=== PATIENT | male | born 1945 | race Hispanic/Latino ===

== ENCOUNTER → 2017-06-20 | Outpatient (CLI) | payer MEDICARE, BC ==
[~2017-06-20] MED LIST: IOPAMIDOL 370 MG/ML 200 ML INFUS..BTL INJ ONE; SODIUM CHLORIDE 0.9% 50ML 50 ML ONE
[2017-06-20 18:13] LABS: BLOOD UREA NITROGEN 14 mg/dL (7-26); BUN/CREATININE RATIO 18 (6-25); CREATININE, SERUM 0.76 mg/dL (0.72-1.25); EST GLOMERULAR FILTRATION RATE > 60 ML/MIN (60-)
--- NOTE | 2017-06-20 20:39 | Diagnostic Imaging Report ---
EXAM: CT Abdomen and Pelvis WITHOUT and WITH contrast INDICATION: Malignant neoplasm of the left kidney. History of surgery. Right flank pain x2-3 months. COMPARISON: CT abdomen and pelvis 08/09/2011 TECHNIQUE: Abdomen and pelvis were scanned utilizing a multidetector helical scanner from the lung base to the pubic symphysis before and after administration of IV contrast. Coronal and sagittal reformations were obtained. Renal mass protocol was performed. Scan was performed pre-, arterial, nephrographic, and 4 minute delayed phase. IV CONTRAST: 100 mL of Isovue 370 ORAL CONTRAST: Water COMPLICATIONS: None RADIATION DOSE: Total DLP: 2015.85 mGy*cm Estimated effective dose: (DLP x 0.015 x size factor) mSv CTDIvol has been reviewed. It is below the limits set by the Radiation Protocol Committee (RPC). FINDINGS: LINES and TUBES: None. LOWER THORAX: Bibasilar atelectasis and mild scarring. Severe trivessel coronary artery calcifications. HEPATOBILIARY: No focal hepatic lesions. No biliary ductal dilation. GALLBLADDER: There are cholecystectomy clips. SPLEEN: No splenomegaly. PANCREAS: There is fatty infiltration of the pancreas. ADRENALS: No adrenal nodules KIDNEYS/URETERS: Kidneys enhance symmetrically. No hydronephrosis. 1.3 cm simple cyst in the lateral interpolar/lower pole. 0.8 cm too small to characterize hypodensity in the medial interpolar region of the right kidney. No stones. Postoperative changes of partial left nephrectomy along the inferior pole. GI TRACT: Right hemicolectomy with ileal transverse colon anastomosis. No abnormal distention, wall thickening, or evidence of bowel obstruction. There are diverticula within the colon without evidence of diverticulitis. PELVIC ORGANS/BLADDER: Prostate measures 5.2 cm in transverse dimension with TURP defect. Bladder is normal. LYMPH NODES: No lymphadenopathy. VESSELS: Unremarkable. PERITONEUM / RETROPERITONEUM: No free air or fluid. BONES: There are degenerative changes in the lumbar spine. Multiple large posterior disc osteophytes. Right L5-S1 partial hemilaminectomy. SOFT TISSUES: Unremarkable. IMPRESSION: 1. Stable postoperative changes of partial left nephrectomy along the inferior pole. 2. Simple right renal cyst. Several other too small to characterize hypodensities bilaterally. Signed by: Dr. Chino Yee M.D. on 06/20/2017 8:35 PM
== END ==
LOC: CT 16:50
PROVIDERS: ATTEND Urology
DX: C64.9 Malignant neoplasm of unspecified kidney, except renal pelvis (principal)
CPT/HCPCS: 36415; 74178; 82565; 84520; Q9967

== ENCOUNTER → 2018-04-16 | Outpatient (CLI) | payer MEDICARE, BC ==
--- NOTE | 2018-04-16 17:25 | Diagnostic Imaging Report ---
Frontal and lateral views of the chest. HISTORY: Malignant neoplasm of left kidney COMPARISON: Images from a chest radiograph performed December 06, 2016. Images to the lung bases from a CT of the abdomen June 20, 2017. DISCUSSION: Lungs: Persistent indentation of the right hemidiaphragm. Mild right greater than left bibasilar atelectasis versus scarring. No consolidative pneumonia or pulmonary alveolar edema. Pleura: No pleural effusion or pneumothorax. Heart and mediastinum: The cardiomediastinal silhouette appears unremarkable. Bones: No acute osseous lesion. IMPRESSION: 1. Eventration of the right hemidiaphragm with mild right greater than left atelectasis versus scarring. 2. No significant interval change. Signed by: Dr. Abel Venegas D.O., M.M.M. on 04/16/2018 5:22 PM
--- NOTE | 2018-04-16 18:22 | Diagnostic Imaging Report ---
RENAL ULTRASOUND TECHNIQUE: Ultrasound evaluation of the KIDNEYS. Color Doppler evaluation was utilized to supplement the evaluation. HISTORY: Status post left nephrectomy, history of malignant neoplasm COMPARISON: CT of the abdomen June 20, 2017. DISCUSSION: RIGHT KIDNEY: The right kidney measures 12 cm in length. The cortex measures 2.1 cm in thickness. Parenchyma is within normal limits. No hydronephrosis or solid mass lesions. LEFT KIDNEY: The left kidney measures 11 cm in length. The cortex measures 1.7 cm in thickness. Parenchyma is within normal limits. No hydronephrosis or solid mass lesions. Cortical irregularity near the inferior pole, compatible with prior partial nephrectomy. BLADDER: Bilateral ureteral jets are visible during the exam. Other: The prostate is within normal size limits. IMPRESSION: 1. Postsurgical changes of the left kidney. 2. No sonographic abnormality. Signed by: Dr. Abel Venegas D.O., M.M.M. on 04/16/2018 6:19 PM
== END ==
LOC: US 16:49
PROVIDERS: ATTEND Urology
DX: C64.2 Malignant neoplasm of left kidney, except renal pelvis (principal)
CPT/HCPCS: 71046; 76770

== ENCOUNTER → 2018-11-01 | Outpatient (CLI) | payer MEDICARE, BC ==
--- NOTE | 2018-11-01 17:25 | Diagnostic Imaging Report ---
EXAMINATION: CHEST 2 VIEWS INDICATION: Malignancy neoplasm of kidney ^[id number] ^[id number] COMPARISON: 04/16/2018 FINDINGS: TUBES and LINES: None. LUNGS: Unchanged nonspecific elevation of the right hemidiaphragm with mild scarring/atelectasis in the lung bases. There is no evidence of pneumonia or pulmonary edema. PLEURA: No pleural effusion or pneumothorax. HEART AND MEDIASTINUM: The cardiomediastinal silhouette is unremarkable. BONES AND SOFT TISSUES: No acute osseous lesion. Soft tissues are unremarkable. UPPER ABDOMEN: No free air under the diaphragm. IMPRESSION: Unchanged nonspecific elevation of the right hemidiaphragm with mild scarring/atelectasis in the lung bases. Signed by: Dr. Jared Bragg M.D. on 11/01/2018 5:21 PM
--- NOTE | 2018-11-01 17:29 | Diagnostic Imaging Report ---
EXAM: Renal Ultrasound INDICATION: Malignant neoplasm of left kidney. Partial left nephrectomy COMPARISON: 04/16/2018 TECHNIQUE: Transverse and longitudinal images of the kidneys and bladder were obtained. FINDINGS: Right Kidney: Length: 12.4 x 7.7 x 5.2 cm Appearance: Normal echogenicity. Collecting system: No hydronephrosis Stones: None Cyst/Mass: None Left Kidney: Length: 11.4 x 4.9 x 6.0 cm Appearance: Normal echogenicity. Mild postsurgical scarring. Collecting system: No hydronephrosis Stones: None Cyst/Mass: None Bladder: Normal IMPRESSION: Normal renal ultrasound exam. Signed by: Dr. Jared Bragg M.D. on 11/01/2018 5:25 PM
--- NOTE | 2018-11-01 17:45 | Diagnostic Imaging Report ---
EXAM: Scrotal Ultrasound with Doppler INDICATION: Scrotal varices COMPARISON: 03/01/2012 TECHNIQUE: Transverse and longitudinal images were obtained of the scrotum with grayscale imaging, color Doppler and spectral waveform analysis. FINDINGS: Right testis: Size: 3.3 x 2.0 x 2.7 cm, normal in size. Echogenicity: Normal Mass/Cysts: None Left testis: Size: 3.9 x 1.6 x 2.9 cm, normal in size. Echogenicity: Normal Mass/Cysts: None Epididymis: Appearance: Normal in size without increased vascularity. Mass/Cysts: None Extratesticular: Masses: None Fluid collections: Small left varicocele Small right inguinal hernia which may contain a small amount of bowel. Doppler: Normal arterial flow to both testes and symmetrical flow on color Doppler evaluation is seen. No evidence of testicular torsion. IMPRESSION: 1. No evidence of testicular torsion. 2. Normal scrotal ultrasound exam. Small left varicocele. Small right inguinal hernia which may contain a small amount of bowel. Signed by: Dr. Jared Bragg M.D. on 11/01/2018 5:42 PM
== END ==
LOC: US 16:11
PROVIDERS: ATTEND Urology
DX: C64.2 Malignant neoplasm of left kidney, except renal pelvis (principal); I86.1 Scrotal varices
CPT/HCPCS: 71046; 76770; 76870; 93976

== ENCOUNTER → 2019-10-24 | Outpatient (CLI) | payer MEDICARE, OTHER ==
--- NOTE | 2019-10-24 09:30 | Diagnostic Imaging Report ---
EXAMINATION: CHEST 2 VIEWS INDICATION: Renal malignancy COMPARISON: Chest radiograph 11/01/2018 FINDINGS: LINES/TUBES:None LUNGS:The lungs are well-inflated. No focal consolidation or pulmonary edema. Unchanged right hemidiaphragmatic elevation. PLEURA:No pleural effusion or pneumothorax. MEDIASTINUM:The cardiomediastinal silhouette appears normal in size and shape. Atherosclerotic calcifications of the thoracic aorta. BONES/SOFT TISSUES:No acute osseous injury. ABDOMEN:No free air under the diaphragm. IMPRESSION: No focal consolidation or pulmonary edema. Unchanged elevation of the right hemidiaphragm. No radiographically apparent pulmonary nodules. Signed by: Tony Lubin MD on 10/24/2019 9:26 AM
--- NOTE | 2019-10-24 10:45 | Diagnostic Imaging Report ---
EXAM: Renal Ultrasound INDICATION: ^[id number] ^[id number] ^[facility] COMPARISON: Renal ultrasound 11/01/2018 TECHNIQUE: Transverse and longitudinal images of the kidneys and bladder were obtained. FINDINGS: Right Kidney: Length: 12.9 cm Appearance: Normal echogenicity. Collecting system: No hydronephrosis Stones: None Cyst/Mass: Mid pole 1.3 x 1.5 x 1.4 cm anechoic simple cyst. Left Kidney: Length: 10.7 cm Appearance: Normal echogenicity. Collecting system: No hydronephrosis Stones: None Cyst/Mass: Upper pole 1.7 cm anechoic simple cyst. Bladder: No mass or calculi. Ureteral jets not well visualized. Prevoid volume estimate of 17 cc. The prostate measures 4.1 x 1.9 x 4.9 cm with volume estimate of 20 cc. IMPRESSION: No hydronephrosis or renal calculi. No solid mass lesion identified. Bilateral simple renal cysts as above. Signed by: Tony Lubin MD on 10/24/2019 10:41 AM
== END ==
LOC: US 08:42
PROVIDERS: ATTEND Urology
DX: C64.9 Malignant neoplasm of unspecified kidney, except renal pelvis (principal)
CPT/HCPCS: 71046; 76770

== ENCOUNTER → 2021-04-15 | Outpatient (CLI) | payer MEDICARE, OTHER | LOC: US 16:15 | PROVIDERS: ATTEND Urology | DX: C64.9 Malignant neoplasm of unspecified kidney, except renal pelvis (principal) | CPT/HCPCS: 71046; 76770 ==

== ENCOUNTER → 2022-03-29 | Outpatient (CLI) | payer MEDICARE | LOC: US 15:54 | PROVIDERS: ATTEND Urology | DX: C64.9 Malignant neoplasm of unspecified kidney, except renal pelvis (principal) | CPT/HCPCS: 71046; 76770 ==

== ENCOUNTER → 2022-11-23 | Outpatient (CLI) | payer MEDICARE, OTHER | LOC: US 16:13 | PROVIDERS: ATTEND Urology | DX: C64.9 Malignant neoplasm of unspecified kidney, except renal pelvis (principal) | CPT/HCPCS: 71046; 76770 ==

== ENCOUNTER → 2024-07-18 | Outpatient (REF) | payer MEDICARE, OTHER | LOC: US 15:51 | PROVIDERS: ATTEND Urology | DX: C64.2 Malignant neoplasm of left kidney, except renal pelvis (principal) | CPT/HCPCS: 71046; 76770; 76857 ==

== ENCOUNTER → 2025-02-19 | Outpatient (REF) | payer MEDICARE, OTHER | LOC: US 15:37 | PROVIDERS: ATTEND Urology | DX: C64.2 Malignant neoplasm of left kidney, except renal pelvis (principal); N28.1 Cyst of kidney, acquired | CPT/HCPCS: 71046; 76770; 76857 ==